=== PATIENT | male | born 1940 | race Caucasian/White ===

== ENCOUNTER → 2020-06-08 14:45 | Outpatient (CLI) | payer OTHER, SELFPAY ==
[2020-06-10 06:48] LABS: COVID19 Sendout Not Detected (Not Detect)
== END ==
PROVIDERS: Visit Provider Nurse Practitioner
DX: Z01.812 Encounter for preprocedural laboratory examination (principal)
CPT/HCPCS: 87635

== ENCOUNTER 2020-06-11 13:15 | Day surgery (SDC) | payer OTHER, SELFPAY ==
[2020-06-11 13:49] VITALS: BP 136/81; PULSE 64; RESP 12; TEMP 36.1; O2SAT 95
[2020-06-11 13:50] VITALS: BMI 33.0
[2020-06-11] MEDS: LACTATED RINGERS 1,000 ML 200 ML IV (13:59)
--- NOTE | 2020-06-11 14:10 | PM.HP.1 ---
History of Present Illness History of Present Illness Date Patient Seen: 06/11/20 Time Patient Seen: 14:10 Chief complaint: [id number] Narrative: The patient presents for colorectal sreening. Had multiple previous colonoscopies most recently 5 years ago which was normal. No personal history of intestinal malignancy his mother had colon cancer. On further history denies any recent gastrointestinal symptoms. No nausea, vomiting, abdominal pain, loss of appetite, unexplained weight loss, change in bowel habits, diarrhea, constipation, melena, hematochezia, or bright red blood per rectum. Patient History Medical History (Updated 06/11/20 @ 14:13 by Farooq Dye MD) Adenomatous polyp (Acute) Diverticulosis (Acute) GERD (gastroesophageal reflux disease) (Acute) HTN (hypertension) (Inactive) Surgical History (Updated 06/11/20 @ 14:11 by Farooq Dye MD) H/O extremity bypass graft (Acute) Family & Social History Family History (Updated 06/11/20 @ 14:12 by Farooq Dye MD) Mother Cancer Social History: household members spouse Tobacco & Substance use: Smoking Status Former smoker alcohol intake current alcohol intake frequency a few times a month Substance Use Type does not use Meds Home Medications and Allergies Home Medications Medication Instructions Recorded Confirmed Type Rosana Aspirin 81 mg PO DAILY 06/11/20 06/11/20 History atorvastatin 80 mg PO BEDTIME 06/11/20 06/11/20 History carvedilol 6.25 mg PO BID 06/11/20 06/11/20 History losartan 25 mg PO DAILY 06/11/20 06/11/20 History omeprazole 20 mg PO DAILY 06/11/20 06/11/20 History Allergies Allergy/AdvReac Type Severity Reaction Status Date / Time No Known Drug Allergies Allergy Verified 06/11/20 13:37 Review of Systems Review of Systems Narrative: A 10 point review of systems is negative except as noted in the HPI Exam Vital Signs (past 8 hours): - 06/11/20 13:49 Temperature 97.0 F L Pulse Rate 64 Respiratory Rate 12 Blood Pressure 136/81 Pulse Oximetry 95 Oxygen Delivery Method Room Air Narrative Exam Narrative: General-no acute distress, well nourished elderly man HEENT-moist mucous membranes, no scleral icterus Neck-supple, no lymphadenopathy Chest- non labored respirations, clear to auscultation bilaterally Cardiac-regular rate no peripheral edema Abdomen-soft, nontender, non distended Extremities-warm, well perfused Neurological-alert and oriented, no focal deficits Assessment & Plan Assessment and plan (1) Screening for colon cancer: Status: Acute Assessment & Plan narrative: The patient requires colorectal screening and colonoscopy is recommended. Technical details were discussed. Risks, benefits, alternatives explained. Risks including but not limited to myocardial infarction, aspiration, bleeding, pain, missed lesion, incomplete examination, need for further radiographic studies, colonic perforation, and need for major abdominal surgery were discussed. All questions were answered to their satisfaction, and they are in agreement with this plan. COVID-19 COVID-19 status: Negative
--- NOTE | 2020-06-11 14:38 | PM.OP.ENDO ---
Operative Date/Time/Diagnoses Date of procedure: 06/11/20 Time of procedure: 14:38 Pre-op diagnosis: Screening colonoscopy Post-op diagnosis: same Procedure & Clinicians Study performed: Colonoscopy Same procedure as scheduled: Yes Indications: 79-year-old man history adenomatous polyps in first-degree relative with colon cancer presents for routine screening Surgeon: Farooq Dye Procedure Notes SCOAP/Timeout: Performed Procedure in detail: Patient placed in left lateral decubitus position. Time out was performed. Procedural sedation was administered with Versed and Fentanyl. A rectal exam demonstrated no external hemorrhoids no internal masses. Colonoscopy scope was placed into the rectum and advanced through the colon to the cecum. The ileocecal valve was identified. The scope was then slowly withdrawn examining colon thoroughly in all directions. The colonoscopy was notable for the following 1. Extensive sigmoid diverticulosis 2. No masses or polyps 3. Grade 1 internal hemorrhoids 4. Quality of prep fair Scope withdrawal time: 7 Sedation minutes: 20 Findings: diverticulosis and internal hemorrhoids Specimen(s): none sent Complications: none Impression: Diverticulosis Post-procedure Recommendations: Colonscopy in 5 years Disposition: same day surgery
[2020-06-11 14:40] VITALS: BP 113/75; PULSE 60; RESP 14; TEMP 37; O2SAT 92
[2020-06-11] MEDS: MIDAZOLAM 5 MG/5 ML VIAL IV (14:41)
[2020-06-11] MEDS: fentaNYL 250 MCG/5 ML INJ IV (14:42)
[2020-06-11 14:45] VITALS: BP 118/74; PULSE 55; RESP 16; O2SAT 92
[2020-06-11 14:50] VITALS: BP 105/66; PULSE 66; RESP 18; TEMP 37; O2SAT 94
[2020-06-11 14:58] VITALS: BP 131/81; PULSE 60; RESP 15; O2SAT 95
[2020-06-11 15:02] VITALS: BP 141/86; PULSE 58; RESP 14; TEMP 36.6; O2SAT 58
== END 2020-06-11 15:42 | disposition home or self-care (01) ==
PROVIDERS: Referring Provider Surgery; Visit Provider Surgery
PROC: 0DJD8ZZ Inspection of Lower Intestinal Tract, Via Natural or Artificial Opening Endoscopic (ICD-10-PCS; CPT 45378; principal; 2020-06-11 14:30)
DX: Z12.11 Encounter for screening for malignant neoplasm of colon (principal); Z86.010 Personal history of colon polyps; Z80.0 Family history of malignant neoplasm of digestive organs; K64.0 First degree hemorrhoids; K57.30 Diverticulosis of large intestine without perforation or abscess without bleeding
CPT/HCPCS: G0105; 99152; J2250; J3010